=== PATIENT | female | born 2000 | race Caucasian/White ===

== ENCOUNTER 2020-06-17 09:39 | Outpatient (REF) | payer OTHER, SELFPAY ==
[2020-06-17 15:49] LABS: CT PCR NOT DETECTED (Not Detect.); NG PCR NOT DETECTED (Not Detect.)
[2020-06-18 09:41] LABS: BV Int Neg Control Negative (Negative); BV Int Pos Control Positive (Positive)
== END 2020-06-17 09:40 | disposition home or self-care (01) ==
LOC: HO.LAB 09:39
PROVIDERS: Visit Provider Advanced Practice Midwife
DX: Z01.419 Encounter for gynecological examination (general) (routine) without abnormal findings (principal); Z11.3 Encounter for screening for infections with a predominantly sexual mode of transmission; Z20.2 Contact with and (suspected) exposure to infections with a predominantly sexual mode of transmission; N89.8 Other specified noninflammatory disorders of vagina; Z80.41 Family history of malignant neoplasm of ovary
CPT/HCPCS: 87480; 87491; 87510; 87591; 87660

== ENCOUNTER 2020-10-14 09:26 | Outpatient (REF) | payer OTHER, SELFPAY | END 2020-10-14 09:27 | disposition home or self-care (01) | LOC: HO.LAB 09:26 | PROVIDERS: Visit Provider Internal Medicine | DX: Z20.822 Contact with and (suspected) exposure to COVID-19 (principal) | CPT/HCPCS: 36415; C9803; U0003; U0005 ==

== ENCOUNTER 2020-11-25 08:19 | Outpatient (REF) | payer OTHER, SELFPAY ==
[2020-11-25 10:40] LABS: HIV AB/AG Nonreactive (Nonreactive); HIV Num 1 0.07 S/CO (0.00-0.99)
[2020-11-25 10:42] LABS: HBc Num1 0.08 S/CO (0.00-0.79); Hepatitis B Core Antibody Nonreactive (Nonreactive); ~HepC Num1 0.05 S/CO (0.00-0.79); ~Hepatitis C Antibody Nonreactive (Nonreactive)
[2020-11-25 10:43] LABS: Syphilis Screen Nonreactive (Nonreactive)
[2020-11-25 14:43] LABS: CT PCR NOT DETECTED (Not Detect.); NG PCR NOT DETECTED (Not Detect.)
[2020-11-26 14:28] LABS: BV Int Neg Control Negative (Negative); BV Int Pos Control Positive (Positive)
== END 2020-11-25 08:20 | disposition home or self-care (01) ==
LOC: HO.LAB 08:19
PROVIDERS: PCP Specialist; Visit Provider Advanced Practice Midwife
DX: N89.8 Other specified noninflammatory disorders of vagina (principal); R10.2 Pelvic and perineal pain; Z20.2 Contact with and (suspected) exposure to infections with a predominantly sexual mode of transmission; E61.1 Iron deficiency; Z88.6 Allergy status to analgesic agent
CPT/HCPCS: 36415; 86704; 86780; 86803; 87389; 87480; 87491; 87510; 87591; 87660; 99212

== ENCOUNTER 2020-12-22 10:46 | Outpatient (REF) | payer OTHER, SELFPAY ==
[2020-12-22 11:12] LABS: COVID-19 Test Negative (Negative); IDNOW Serial# 55D5AD1C
== END 2020-12-22 10:47 | disposition home or self-care (01) ==
LOC: HO.LAB 10:46
PROVIDERS: Visit Provider Internal Medicine
DX: Z20.822 Contact with and (suspected) exposure to COVID-19 (principal)
CPT/HCPCS: 36415; 87635; C9803

== ENCOUNTER 2021-02-05 09:48 | Outpatient (REF) | payer OTHER, SELFPAY | END 2021-02-05 09:49 | disposition home or self-care (01) | LOC: HO.LAB 09:48 | PROVIDERS: PCP Specialist; Visit Provider Internal Medicine | DX: Z20.822 Contact with and (suspected) exposure to COVID-19 (principal) | CPT/HCPCS: C9803; U0003; U0005 ==

== ENCOUNTER 2021-07-26 08:51 | Outpatient (REF) | payer OTHER, SELFPAY ==
[2021-07-26 12:52] LABS: CT PCR NOT DETECTED (Not Detect.); NG PCR NOT DETECTED (Not Detect.)
[2021-07-27 09:39] LABS: BV Int Neg Control Negative (Negative); BV Int Pos Control Positive (Positive)
== END 2021-07-26 08:52 | disposition home or self-care (01) ==
LOC: HO.LAB 08:51
PROVIDERS: PCP Specialist; Visit Provider Advanced Practice Midwife
DX: Z30.011 Encounter for initial prescription of contraceptive pills (principal); N92.0 Excessive and frequent menstruation with regular cycle; N76.0 Acute vaginitis; Z20.2 Contact with and (suspected) exposure to infections with a predominantly sexual mode of transmission; B96.89 Other specified bacterial agents as the cause of diseases classified elsewhere; Z86.2 Personal history of diseases of the blood and blood-forming organs and certain disorders involving the immune mechanism
CPT/HCPCS: 87480; 87491; 87510; 87591; 87660; 99212

== ENCOUNTER 2021-08-24 08:44 | Outpatient (REF) | payer OTHER, SELFPAY ==
[2021-08-24 09:15] LABS: COVID-19 Test Positive (Negative)
== END 2021-08-24 08:45 | disposition home or self-care (01) ==
LOC: HO.LAB 08:44
PROVIDERS: Visit Provider Internal Medicine
DX: Z20.822 Contact with and (suspected) exposure to COVID-19 (principal)
CPT/HCPCS: 36415; 87635; C9803

== ENCOUNTER 2021-12-16 09:25 | Outpatient (REF) | payer OTHER, SELFPAY ==
[2021-12-16 15:44] LABS: CT PCR NOT DETECTED (Not Detect.); NG PCR NOT DETECTED (Not Detect.)
[2021-12-17 09:22] LABS: BV Int Neg Control Negative (Negative); BV Int Pos Control Positive (Positive)
== END 2021-12-16 09:26 | disposition home or self-care (01) ==
LOC: HO.LAB 09:25
PROVIDERS: PCP Specialist; Visit Provider Advanced Practice Midwife
DX: Z01.411 Encounter for gynecological examination (general) (routine) with abnormal findings (principal); N89.8 Other specified noninflammatory disorders of vagina; N92.0 Excessive and frequent menstruation with regular cycle; Z20.2 Contact with and (suspected) exposure to infections with a predominantly sexual mode of transmission
CPT/HCPCS: 81025; 87480; 87491; 87510; 87591; 87660; 88142

== ENCOUNTER 2022-01-19 13:44 | Outpatient (REF) | payer MEDICAID, SELFPAY ==
--- NOTE | ~2022-01-19 | US_ITS ---
EXAMINATION: US PELVIS CLINICAL INFORMATION: Excessive and frequent menses. COMPARISON: None TECHNIQUE: Ultrasound of the pelvis is performed using both transabdominal and transvaginal transducers along with Doppler. Transvaginal imaging is performed due to inadequate visualization transabdominally. FINDINGS: Uterus: The uterus is anteverted, anteflexed and measures 4.4 x 1.6 x 3.4 cm The double wall endometrial is thickened measuring 1.50 cm.. The uterus is smooth in contour and has normal myometrial echogenicity. No visible fibroid. There are small nabothian cyst in cervix. Adnexa: Both ovaries are visualized. There is normal color flow to the adnexa. There is no ovarian torsion. There is no pelvic ascites or fluid collection. Right ovary measures 4.11 x 3.52 x 4.08 and volume 30.9 mL Left ovary measures 3.56 x 2.88 x 3.24 cm and volume 17.39 mL. There is a complex cyst measuring 2.2 x 1.5 x 2.1 cm with adjacent small amount of free fluid. US/US pelvic and transvaginal IMPRESSION: Thickened endometrium measuring 1.50 cm. Complex cyst left ovary measuring 2.2 cm. There is adjacent free fluid likely physiological. Small nabothian cysts in the cervix.
== END 2022-01-19 13:45 | disposition home or self-care (01) ==
LOC: HO.HMGCX 13:44
PROVIDERS: Visit Provider Advanced Practice Midwife
DX: N92.0 Excessive and frequent menstruation with regular cycle (principal)
CPT/HCPCS: 76830; 76856

== ENCOUNTER 2024-11-13 10:38 | Outpatient (REF) | payer OTHER, SELFPAY | END 2024-11-13 10:39 | disposition home or self-care (01) | LOC: HO.LAB 10:38 | PROVIDERS: PCP Specialist; Visit Provider Advanced Practice Midwife | DX: Z13.89 Encounter for screening for other disorder (principal) ==

== ENCOUNTER 2024-11-13 10:38 | Outpatient (AMB) | payer OTHER, SELFPAY ==
--- NOTE | 2024-11-13 10:48 | A.OFFVIS_ITS ---
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 She was on control pills for years ago but she felt she was gaining weight with them. She has a history of very severe anemia requiring blood transfusions she has been struggling with anemia all her life and she can tell when her blood counts low and she feels it is probably at a 6 right now. 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 She is working on trying to get a primary care provider for herself and is looking at [facility] versus [facility]. She is open to and in fact would like to be but she also is open to the idea of control pills for short while which we have discussed thoroughly during this visit to help lighten her periods secondary to her anemia her periods started yesterday and she gets her periods for 7 days but the blood is a bottling room worker color than it used to be. Does not get the clots anymore. The last time she had a primary care provider was at [facility]. She had been referred from there to [facility] for blood transfusions but she was told that she was just a healthy kid who is anemic. 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 Assessment & Plan Assessment & Plan (1) Menorrhagia with regular cycle: Code(s): N92.0 - Excessive and frequent menstruation with regular cycle Category: Medical (2) Hx of iron deficiency anemia: Code(s): Z86.2 - Personal history of diseases of the blood and blood-forming organs and certain disorders involving the immune mechanism Category: Medical (3) BCP ( control pills) initiation: Code(s): Z30.011 - Encounter for initial prescription of contraceptive pills Category: Medical (4) Possible exposure to STD: Code(s): Z20.2 - Contact with and (suspected) exposure to infections with a predominantly sexual mode of transmission Category: Medical (5) Encounter for annual routine gynecological examination: Code(s): Z01.419 - Encounter for gynecological examination (general) (routine) without abnormal findings Category: Medical Plan 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 She was on control pills for years ago but she felt she was gaining weight with them. She has a history of very severe anemia requiring blood transfusions she has been struggling with anemia all her life and she can tell when her blood counts low and she feels it is probably at a 6 right now. 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 She is working on trying to get a primary care provider for herself and is looking at [facility] versus [facility]. She is open to and in fact would like to be but she also is open to the idea of control pills for short while which we have discussed thoroughly during this visit to help lighten her periods secondary to her anemia her periods started yesterday and she gets her periods for 7 days but the blood is a bottling room worker color than it used to be. Does not get the clots anymore. The last time she had a primary care provider was at [facility]. She had been referred from there to [facility] for blood transfusions but she was told that she was just a healthy kid who is anemic. Based on her slightly pale appearance and how she feels with her history of correlating her CBC to how she feels she thinks her CBC might be as low as a 6. I am ordering a CBC and an iron workup as well and I told her that if she is anemic we will be referring her to Hematology to have consideration about further workup and any transfusions as they deem necessary. I also talked to her about delaying for now and trying to get her anemia under control and also starting control pills to try to have her periods be bottling room worker in general. Based on her appearance and actually how light the blood is in color I am assessing that she probably is quite anemic and that is why her periods are not as darkened clotty as they were in the past. I recommend that it would be very good to get everything under good control 1st before contemplating and she agrees. We will start control pills today and I am prescribing a formulation that has iron in it. She has a history of migraines with auras but they were not made worse by the control pills. In any case she would not be a candidate for a long-term methods such as an IUD at this point as is something she is considering in the near future. She is continuing to try to find a primary care provider within the [facility] system but I also gave her a listing a primary care provider's within [facility] system. Also discussed for future information that we do not have a birthing center at [facility] any longer so for 1st pregnancies in anyone with any medical complications such as severe anemia she would be well served by seeking care from the very start at [facility] but I did review her other options in the [facility] as well. We will see her in 3 months to review how she is doing on pills and I reviewed to start today and take 1 pill every single day go from 1 pack to the next. RTC 3 months for pill check and anemia follow-up check Labs today, patient is on the portal anticipate anemic Orders: Orders HIV Ab/Ag Today N92.0 - Excessive and frequent menstruation with regular cycle, Z01.419 - Encounter for gynecological examination (general) (routine) without abnormal findings, Z20.2 - Contact with and (suspected) exposure to infections with a predominantly sexual mode of transmission, Z30.011 - Encounter for initial prescription of contraceptive pills, Z86.2 - Personal history of diseases of the blood and blood-forming organs and certain disorders involving the immune mechanism Syphilis Screen Today N92.0 - Excessive and frequent menstruation with regular cycle, Z01.419 - Encounter for gynecological examination (general) (routine) without abnormal findings, Z20.2 - Contact with and (suspected) exposure to infections with a predominantly sexual mode of transmission, Z30.011 - Encounter for initial prescription of contraceptive pills, Z86.2 - Personal history of diseases of the blood and blood-forming organs and certain disorders involving the immune mechanism IRON PROFILE Today N92.0 - Excessive and frequent menstruation with regular cycle, Z01.419 - Encounter for gynecological examination (general) (routine) without abnormal findings, Z20.2 - Contact with and (suspected) exposure to infections with a predominantly sexual mode of transmission, Z30.011 - Encounter for initial prescription of contraceptive pills, Z86.2 - Personal history of diseases of the blood and blood-forming organs and certain disorders involving the immune mechanism Hepatitis B Surface Antigen Today N92.0 - Excessive and frequent menstruation with regular cycle, Z01.419 - Encounter for gynecological examination (general) (routine) without abnormal findings, Z20.2 - Contact with and (suspected) exposure to infections with a predominantly sexual mode of transmission, Z30.011 - Encounter for initial prescription of contraceptive pills, Z86.2 - Personal history of diseases of the blood and blood-forming organs and certain disorders involving the immune mechanism Hepatitis C Antibody Today N92.0 - Excessive and frequent menstruation with regular cycle, Z01.419 - Encounter for gynecological examination (general) (routine) without abnormal findings, Z20.2 - Contact with and (suspected) exposure to infections with a predominantly sexual mode of transmission, Z30.011 - Encounter for initial prescription of contraceptive pills, Z86.2 - Personal history of diseases of the blood and blood-forming organs and certain disorders involving the immune mechanism Complete Blood Count no Diff Today N92.0 - Excessive and frequent menstruation with regular cycle, Z01.419 - Encounter for gynecological examination (general) (routine) without abnormal findings, Z20.2 - Contact with and (suspected) exposure to infections with a predominantly sexual mode of transmission, Z30.011 - Encounter for initial prescription of contraceptive pills, Z86.2 - Personal history of diseases of the blood and blood-forming organs and certain disorders involving the immune mechanism Medications: New levonorgest-eth.estradiol-iron 0.1 mg-0.02 mg (21)/iron (7) 1 tab PO DAILY 84 tabs 4RF Coding Level of Care Code New Pt Prev Care 18-39yr([id number] Diagnoses Menorrhagia with regular cycle N92.0 Hx of iron deficiency anemia Z86.2 BCP ( control pills) initiation Z30.011 Possible exposure to STD Z20.2 Encounter for annual routine gynecological examination Z01.419
[2024-11-13 10:55] VITALS: BP 116/62; BMI 29.8
== END 2024-11-13 12:25 | disposition home or self-care (01) ==
LOC: HO.HWSM 10:38
PROVIDERS: PCP Specialist; Visit Provider Advanced Practice Midwife
DX: Z01.419 Encounter for gynecological examination (general) (routine) without abnormal findings (principal); N92.0 Excessive and frequent menstruation with regular cycle; Z30.011 Encounter for initial prescription of contraceptive pills; Z20.2 Contact with and (suspected) exposure to infections with a predominantly sexual mode of transmission
CPT/HCPCS: 99385; 99459

== ENCOUNTER 2024-11-13 12:18 | Outpatient (REF) | payer OTHER, SELFPAY ==
[2024-11-13 13:46] LABS: Red Cell Distribution Width 22.5 % (11.0-16.0)
[2024-11-13 13:48] LABS: Hemoglobin 7.1 g/dl (12.0-16.0); Mean Corpuscular HGB Conc 28.4 g/dl (31.0-35.0); Mean Corpuscular Hemoglobin 16.1 pg (27.0-33.0); Mean Corpuscular Volume 56.6 fL (80.0-98.0); PLT ABN DIST 1; Platelet Count 294 X10*3/uL (160-400); Red Blood Count 4.42 X10*6/uL (4.20-5.50); White Blood Count 5.4 X10*3/uL (4.8-10.8)
[2024-11-13 14:21] LABS: Iron 9 mcg/dL (30-160); Percent Iron Saturation 2 % (15-50); Total Iron Binding Capacity 454 mcg/dL (228-428); Unsaturated Iron Binding 445 ug/dL
[2024-11-14 08:06] LABS: Syphilis Screen Nonreactive (Nonreactive)
[2024-11-14 08:15] LABS: HBsAGNum1 0.29 S/CO (0.00-0.99); HIV AB/AG Nonreactive (Nonreactive); HIV Num 1 0.06 S/CO (0.00-0.99); Hepatitis B Surface Antigen Negative (Negative); ~HepC Num1 0.14 S/CO (0.00-0.79); ~Hepatitis C Antibody Nonreactive (Nonreactive)
== END 2024-11-13 12:19 | disposition home or self-care (01) ==
LOC: HO.HHCL 12:18
PROVIDERS: Visit Provider Advanced Practice Midwife
DX: Z30.011 Encounter for initial prescription of contraceptive pills (principal); N92.0 Excessive and frequent menstruation with regular cycle; Z20.2 Contact with and (suspected) exposure to infections with a predominantly sexual mode of transmission; Z86.2 Personal history of diseases of the blood and blood-forming organs and certain disorders involving the immune mechanism
CPT/HCPCS: 36415; 83540; 85027; 86780; 86803; 87340; 87389

== ENCOUNTER 2024-11-13 15:24 | Outpatient (REF) | payer OTHER, SELFPAY ==
[2024-11-14 03:52] LABS: CT PCR NOT DETECTED (Not Detect.); NG PCR NOT DETECTED (Not Detect.)
[2024-11-14 13:03] LABS: Bacterial Vaginosis PCR NEGATIVE (Negative); Candida Group PCR DETECTED (Not Detect); Candida glab krusei PCR NOT DETECTED (Not Detect); Trichomonas vaginalis PCR NOT DETECTED (Not Detect)
[2024-11-20 14:00] LABS: HPV Genotype 16 Negative (Negative); HPV Genotype 18 Negative (Negative); HPV High Risk Negative (Negative)
== END 2024-11-13 15:25 | disposition home or self-care (01) ==
LOC: HO.LNP 15:24
PROVIDERS: Visit Provider Advanced Practice Midwife
DX: Z00.00 Encounter for general adult medical examination without abnormal findings (principal); N89.8 Other specified noninflammatory disorders of vagina; Z20.2 Contact with and (suspected) exposure to infections with a predominantly sexual mode of transmission; Z11.51 Encounter for screening for human papillomavirus (HPV)
CPT/HCPCS: 81515; 87491; 87591; 87626; 88175

== ENCOUNTER → 2024-11-20 09:20 | Outpatient (BNV) | payer OTHER, SELFPAY | PROVIDERS: Referring Provider Advanced Practice Midwife; Visit Provider Nurse Practitioner Family | DX: D50.9 Iron deficiency anemia, unspecified (principal) | CPT/HCPCS: 99204 ==

== ENCOUNTER 2024-12-05 13:22 | Emergency (ER) | payer OTHER, SELFPAY ==
--- NOTE | 2024-12-05 13:28 | ED_ITS ---
HPI - General Adult General Chief complaint: General Medical Stated complaint: swelling, recent iron transfusion Time Seen by Provider: 12/05/24 16:19 Source: patient Mode of arrival: ambulatory Limitations: no limitations History of Present Illness ED Provider: Franklin Mcguire DO HPI narrative: 24-year-old female with past medical history of iron-deficiency anemia on iron infusions over the last 3 weeks presents due to bilateral ankle swelling and discoloration of her right ankle as well as sensation of swelling of the bilateral upper extremities. Patient states she has had 3 doses of the infusion and has been compliant on the oral iron therapy as well as her control. She states she is not sexually active and has no concerns for today. She is concerned to her chronic intermittent nausea and dizziness most notably while taking showers or washing the dishes. She denies any fevers, chest discomfort, difficulty breathing, rigors or asymmetric swelling or pain of her legs or arms. She has followed up with her infant childcare provider and has upcoming appointments. She did not currently have a primary care provider and is hoping to establish Related Data Previous Rx's ?Medication ?Instructions ?Recorded ferrous sulfate 324 mg (65 mg 324 mg PO BID #60 tabs 11/13/24 iron) tablet,delayed release levonorgestrel 0.1 mg-ethinyl 1 tab PO DAILY #84 tabs 11/13/24 estradiol 0.02 mg (21)/iron (7) tablet cyanocobalamin (vitamin B-12) 1,000 mcg sublingual DAILY 30 days 11/22/24 1,000 mcg sublingual lozenge #30 ea diphenhydramine HCl 25 mg capsule 25 mg PO BEDTIME PRN Allergic 12/05/24 Reaction #10 caps famotidine 20 mg tablet (Pepcid) 20 mg PO DAILY PRN Allergic 12/05/24 Reaction #5 tabs Allergies Allergy/AdvReac Type Severity Reaction Status Date / Time codeine Allergy Unknown Hives Verified 12/05/24 13:32 Review of Systems 2 Review of Systems: Yes all other systems are reviewed and are negative [facility] Past Medical History Medical History (Updated 12/06/24 @ 00:00 by Igor Stoll) FH: breast cancer in first degree relative Migraine with aura Hx of iron deficiency Family History Family History Mother Breast CA Ovarian cancer Stomach cancer Maternal Grandmother Ovarian cancer Father Diabetes mellitus Social History Social History (Updated 11/20/24 @ 10:23 by Lore Maravilla) Household Members: None Housing: Apartment Are you a primary career development associate to a significant other at home: Yes Do you presently have visiting nurse or other home services: No Alcohol intake: never Patient Tobacco Use Status: Never used Tobacco Substance Use Type: Marijuana Advance Directives: No Advance Directives Information Provided: Yes service: No Current occupational status: employed 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 ?Moist mucous membranes Eyes: ?PERRL, EOMI Neck: ?Supple, nontender Chest: ?No chest wall tenderness Respiratory: ?Lungs clear to auscultation, no increased work of breathing Cardio: ?Regular rate and rhythm, no murmur, 2+ radial and DP pulses symmetrically, capillary refill under 3 seconds GI: ?Soft, nondistended, nontender Back: ?Normal range of motion, nontender Skin: ?No rash, no lesions Neuro: ?Alert and oriented to person, place and time, moves all 4 extremities, no focal deficits, 5/5 strength of the bilateral upper and lower extremities, sensation fully intact. Extremities: ?There is a scant amount of edema of the bilateral lower extremities with mild brawny discoloration limited to the right lateral ankle. No soft tissue or bony tenderness to palpation. There is full active and passive range of motion of all 4 extremities. I can not appreciate any edema of the upper extremities. There is no pitting edema. Psych: ?Calm, alert and cooperative, appropriate behavior Course Course Course Narrative: This is a Rapid Medical Exam performed in triage by Corinna Vargas PA-C. Full HPI, ROS and PE to be performed by primary ED provider. 24-year-old female with a past medical history of iron-deficiency anemia presenting to the ED c/o diffuse myalgias & body swelling (UE & LE) x3 days. Has been receiving iron transfusions, last received on Saturday 12/02. Only other new medication is B12 PE: mildly pale, nontoxic appearing, mild swelling to LE, nonpitting Plan: labs, UA Medical Decision Making Medical Decision Making MDM Narrative: Patient presenting with concerns for all 4 extremity edema and discoloration. There are no clinical signs of DVT or PE. There are no clinical signs of cellulitis. The patient is neurovascularly intact. Are reassuring including TSH and CBC with improved from baseline hemoglobin likely secondary to iron infusions. The discoloration is possibly secondary to the infusion as well as the muscle and joint pain. Patient has no active dizziness and has been instructed to avoid standing for prolonged periods in the shower to help avoid syncopal episodes. She is provided a work note and primary care contact information to establish care. All questions have been answered to the best of my ability and the patient feels content that she has no emergent condition at this time. Strict return precautions have been provided. Lab Data 12/05/24 13:55 12/05/24 13:55 Labs: Lab Results 12/05/24 Range/Units 13:55 WBC 5.8 (4.8-10.8) X10*3/uL RBC 5.62 H D (4.20-5.50) X10*6/uL Hgb 10.1 L D (12.0-16.0) g/dl Hct 35.3 L D (37.0-47.0) % MCV 62.8 L (80.0-98.0) fL MCH 18.0 L (27.0-33.0) pg MCHC 28.6 L (31.0-35.0) g/dl RDW 33.5 H (11.0-16.0) % Plt Count 312 (160-400) X10*3/uL MPV Not Reportable Immature Gran % (Auto) 0.3 (0.0-0.4) % Neut % (Auto) 72.3 (45-73) % Lymph % (Auto) 20.9 (20-40) % Cavalier % (Auto) 5.5 (2-11) % Eos % (Auto) 0.3 (0-4) % Baso % (Auto) 0.7 (0-2) % Lymph # (Auto) 1.2 (1.2-4.9) X10*3/uL Cavalier # (Auto) 0.3 (0.1-1.2) X10*3/uL Eos # (Auto) 0.0 (0.0-0.4) X10*3/uL Baso # (Auto) 0.0 (0.0-0.2) X10*3/uL Abs Immat Gran (auto) 0.02 (0.00-0.03) X10*3/uL Absolute Neuts (auto) 4.2 (2.0-8.3) x10*3/uL Absolute Nucleated RBC 0.000 (0.0-0.012) X10*3/uL Nucleated RBC % (auto) 0.0 (0.0-0.2) /100WBC Sodium 143 (135-145) mmol/L Potassium 3.6 (3.3-5.1) mmol/L Chloride 112 H (96-108) mmol/L Carbon Dioxide 22 (22-29) mmol/L Anion Gap 13 (12-20) BUN 8 L (9-16) mg/dL Creatinine 0.64 (0.5-1.4) mg/dL Estim Creat Clear Calc 110.9 Estimated GFR > 60 Random Glucose 78 (60-115) mg/dL Calcium 9.7 (8.4-10.2) mg/dL Magnesium 2.2 (1.6-2.6) mg/dL Total Bilirubin 0.5 (0.0-1.0) mg/dL Direct Bilirubin 0.1 (0.0-0.5) mg/dL AST 33 H (5-31) U/L ALT 20 (0-31) U/L Alkaline Phosphatase 70 (39-117) U/L Total Creatine Kinase 73 (26-140) U/L Total Protein 8.1 H (6.5-8.0) g/dL Albumin 5.0 (3.5-5.0) g/dL TSH 0.69 (0.32-4.0) uIU/mL Influenza Type A (PCR) NEGATIVE (Negative) Influenza Type B (PCR) NEGATIVE (Negative) RSV RNA Qual (PCR) NEGATIVE (Negative) SARS-CoV-2 RNA (RT-PCR) NEGATIVE (Negative) Discharge Plan Discharge Clinical Impression: Hx of iron deficiency, Lower extremity pain, bilateral Patient Disposition: Home, Self-Care Instructions: Leg Cramps (ED) Additional Instructions: You were evaluated for pain and swelling of your arms and legs as well as discoloration. He has are not uncommon side effects with iron infusions. The list of side effects to be expected include headaches, dizziness, nausea, flushing of the skin, muscle and joint pain, and abdominal cramping. Please follow up with a primary care provider when capable as well as your infant childcare provider. Return if you have any new or concerning symptoms or changes to her arms or legs or development of fevers, difficulty breathing or chest discomfort or any other acute concerns. Prescriptions: New diphenhydramine HCl 25 mg Capsule 25 mg PO BEDTIME PRN (Reason: Allergic Reaction) Qty: 10 0RF Rx Instructions: Take 2 capsules today. May repeat dose once daily as needed for allergic reaction famotidine [Pepcid] 20 mg Tablet 20 mg PO DAILY PRN (Reason: Allergic Reaction) Qty: 5 0RF Rx Instructions: Take 1 tab today with benadryl. May repeat dose daily as needed for allergic reaction. No Action ferrous sulfate 324 mg (65 mg iron) tablet,delayed release (DR/EC) 324 mg PO BID Qty: 60 2RF Rx Instructions: Take with iron rich diet, plenty of fiber, vegetables and water to prevent constipation, consider prune juice for constipation... cyanocobalamin (vitamin B-12) 1,000 mcg Lozenge 1,000 mcg SUBLINGUAL DAILY 30 Days Qty: 30 3RF levonorgest-eth.estradiol-iron 0.1 mg-0.02 mg (21)/iron (7) tablet 1 tab PO DAILY Qty: 84 4RF Referrals: [facility] Family Medicine [Provider Group] (Call to establish and follow up with a primary care provider. If you already have a primary care provider, please follow up with them.) [facility] Primary CareAlexandra [Provider Group] (Call to establish and follow up with a primary care provider. If you already have a primary care provider, please follow up with them.) [facility] Primary CareVic [Provider Group] (Call to establish and follow up with a primary care provider. If you already have a primary care provider, please follow up with them.) [facility] Primary Care, ARMANDO [Provider Group] (Call to establish and follow up with a primary care provider. If you already have a primary care provider, please follow up with them.) [facility] Primary CareScott [Provider Group] (Call to establish and follow up with a primary care provider. If you already have a primary care provider, please follow up with them.) Stand Alone Forms: Work/School Release Interventions: ED Discharge Assessment Last Done: 12/05/24 17:04 Discharge Date/Time: 12/05/24 17:06 Print Language: Vietnamese
[2024-12-05 13:29] VITALS: BP 127/77; PULSE 89; RESP 16; TEMP 36.8; O2SAT 100; BMI 29.4
[2024-12-05 14:00] LABS: MANUAL DIFF FLAG NO
[2024-12-05 14:05] LABS: Basophils Percent Auto 0.7 % (0-2); Eosinophils Percent Auto 0.3 % (0-4); Hematocrit 35.3 % (37.0-47.0); Hemoglobin 10.1 g/dl (12.0-16.0); Imm Gran Abs Auto 0.02 X10*3/uL (0.00-0.03); Imm Gran Pct Auto 0.3 % (0.0-0.4); Lymphocytes Absolute Auto 1.2 X10*3/uL (1.2-4.9); Lymphocytes Percent Auto 20.9 % (20-40); Mean Corpuscular HGB Conc 28.6 g/dl (31.0-35.0); Mean Corpuscular Volume 62.8 fL (80.0-98.0); Monocytes Absolute Auto 0.3 X10*3/uL (0.1-1.2); Monocytes Percent Auto 5.5 % (2-11); Neutrophils Absolute Auto 4.2 x10*3/uL (2.0-8.3); Neutrophils Percent Auto 72.3 % (45-73); Platelet Count 312 X10*3/uL (160-400); Red Blood Count 5.62 X10*6/uL (4.20-5.50); Red Cell Distribution Width 33.5 % (11.0-16.0); White Blood Count 5.8 X10*3/uL (4.8-10.8)
[2024-12-05 14:25] LABS: Alanine Aminotransferase 20 U/L (0-31); Alkaline Phosphatase 70 U/L (39-117); Anion Gap 13 (12-20); Aspartate Amino Transferase 33 U/L (5-31); Bilirubin Direct 0.1 mg/dL (0.0-0.5); Bilirubin Total 0.5 mg/dL (0.0-1.0); Blood Urea Nitrogen 8 mg/dL (9-16); Calcium 9.7 mg/dL (8.4-10.2); Carbon Dioxide 22 mmol/L (22-29); Chloride 112 mmol/L (96-108); Creatinine Clr Calc Pharmacy 110.9; Estimated Glomerular Filt Rate > 60; Glucose Random 78 mg/dL (60-115); Magnesium 2.2 mg/dL (1.6-2.6); Potassium 3.6 mmol/L (3.3-5.1); Sodium 143 mmol/L (135-145); Total Protein 8.1 g/dL (6.5-8.0)
[2024-12-05 14:40] LABS: TSH reflex Free T4 0.69 uIU/mL (0.32-4.0)
[2024-12-05 14:43] LABS: Influenza A PCR NEGATIVE (Negative); Influenza B PCR NEGATIVE (Negative); Resp Syncy Virus RNA Qual PCR NEGATIVE (Negative); SARS COV2 PCR INHOUSE NEGATIVE (Negative)
[2024-12-05 17:04] VITALS: BP 118/76; PULSE 78; RESP 16; TEMP 36.7; O2SAT 100
== END 2024-12-05 17:06 | disposition home or self-care (01) ==
PROVIDERS: Physician Assistant; Emergency Provider Emergency Medicine
DX: M79.605 Pain in left leg (principal); M79.604 Pain in right leg; R60.0 Localized edema; Z03.818 Encounter for observation for suspected exposure to other biological agents ruled out; Z79.899 Other long term (current) drug therapy
CPT/HCPCS: 0241U; 80048; 80076; 82550; 83735; 84443; 85025; 99282; 99283